=== PATIENT | female | born 1980 | race African-American/Black ===

== ENCOUNTER 2018-07-03 22:34 | Emergency (ER) | payer MEDICAID ==
[~2018-07-03] VITALS: Ht 167.6 cm; Wt 82.0 kg
[2018-07-03 23:41] LABS: CLARITY URINE CLEAR (CLEAR); COLOR URINE YELLOW (YELLOW); KETONES URINE NEGATIVE (NEGATIVE); LEUKOCYTE ESTERASE URINE NEGATIVE (NEGATIVE); NITRITE URINE NEGATIVE (NEGATIVE); OCCULT BLOOD URINE 2+ (NEGATIVE); PROTEIN URINE NEGATIVE (NEGATIVE); SPECIFIC GRAVITY URINE 1.024 (1.005-1.030)
[2018-07-04] MEDS ORDERED: PROCHLORPERAZINE MALEATE 10MG TABLET PO ONE (00:15)
[2018-07-04] MEDS ORDERED: KETOROLAC 30MG/ML VIAL IV ONE (00:15)
[2018-07-04 03:14] VITALS: BP 129/93
== END 2018-07-04 03:32 | disposition home or self-care (01) ==
LOC: ER 22:34
DX: R51 Headache (principal); M79.601 Pain in right arm; G89.29 Other chronic pain
CPT/HCPCS: 70450; 81003; 81025; 96374; 99284; J1885; Q0164; Z7610